=== PATIENT | female | born 1990 | race African-American/Black ===

== ENCOUNTER 2017-04-29 08:28 | Emergency (ER) | payer OTHER ==
[~2017-04-29] VITALS: Ht 172.7 cm; Wt 90.0 kg
[~2017-04-29 08:28] MED LIST: AMOXICILLIN500 MG OR; CALNA OR; CIPRO500 MG OR; FLEXERIL PO; LORTAB 10-325 M1 TAB PO; MEDDOSEPAK PO; NAPROSYN500 MG PO; PRENATAL1 TAB OR
[2017-04-29 09:22] LABS: URINE BILIRUBIN - DIPSTICK NEGATIVE (NEGATIVE); URINE BLOOD DIPSTICK NEGATIVE (NEGATIVE); URINE CLARITY CLEAR; URINE COLOR YELLOW; URINE GLUCOSE - DIPSTICK NEGATIVE (NEGATIVE); URINE KETONE NEGATIVE (NEGATIVE); URINE LEUK ESTERASE NEGATIVE (NEGATIVE); URINE NITRITE - DIPSTICK NEGATIVE (Negative); URINE PROTEIN - DIPSTICK NEGATIVE (NEG-TRACE); URINE UROBILINOGEN - DIPSTICK 0.2 E.U./dL (0.2)
[2017-04-29 09:28] LABS: HEMATOCRIT 40.4 % (37.0-47.0); HEMOGLOBIN 14.3 g/dl (12.0-16.0); IMMATURE GRANULOCYTES 0.5 % (0.0-1.0); MEAN CORPUSCULAR HGB 32.2 pG CALC (26.0-32.0); MEAN CORPUSCULAR HGB CONC 35.4 g/L CALC (32.0-36.0); NEUT# 4.52 thou/uL (2.00-7.15); RED BLOOD COUNT 4.44 mill/uL (4.20-5.60); RED CELL DISTRI WIDTH 12.6 % (11.5-15.5)
[2017-04-29 09:33] LABS: ALBUMIN 4.6 g/dL (3.2-5.0); ALKALINE PHOSPHATASE 69 u/l (38-126); AMYLASE 72 u/l (30-110); ANION GAP 15 (6-22 (CALC)); BILIRUBIN, TOTAL 0.9 mg/dL (0.0-1.4); BUN 12 mg/dL (7-17); BUN/CREATININE RATIO 16 (12-20 (CALC)); CALCIUM 9.8 mg/dL (8.4-10.2); CARBON DIOXIDE 23 mmol/l (22-30); CHLORIDE 107 mmol/l (95-108); CREATININE 0.8 mg/dL (0.5-1.0); GFR > 60 ML/MIN (>=60 (CALC)); GFR FOR AFR.AMER. > 60 ML/MIN (>=60 (CALC)); GLUCOSE 93 mg/dL (65-105); LIPASE 69 u/l (23-300); POTASSIUM 4.5 mmol/l (3.5-5.1); SGOT/AST 31 u/l (14-36); SGPT/ALT 36 u/l (9-52); SODIUM 141 mmol/l (137-146); TOTAL PROTEIN 7.9 g/dL (6.3-8.2)
[2017-04-29 10:44] VITALS: BP 119/73
[2017-04-29] MEDS ORDERED: ANUCORT-HC25 MG RE (10:44)
== END 2017-04-29 10:55 | disposition home or self-care (01) | DRG 394 ==
LOC: ED 08:28
PROVIDERS: Emergency Medicine
DX: K64.4 Residual hemorrhoidal skin tags (principal); K62.5 Hemorrhage of anus and rectum; R10.13 Epigastric pain

== ENCOUNTER 2018-09-19 08:51 | Emergency (ER) | payer SELFPAY ==
[~2018-09-19] VITALS: Ht 172.7 cm; Wt 46.0 kg
[~2018-09-19 08:51] MED LIST changes: +ANUCORT-HC25 MG RE
[2018-09-19] MEDS ORDERED: TAM75CAP PO (09:06)
[2018-09-19 09:16] VITALS: BP 126/82
== END 2018-09-19 09:23 | disposition home or self-care (01) | DRG 951 ==
LOC: ED 08:51
DX: Z03.89 Encounter for observation for other suspected diseases and conditions ruled out (principal)